=== PATIENT | female | born 1995 | race Caucasian/White ===

== ENCOUNTER 2025-07-05 16:44 | Emergency (ER) | payer OTHER ==
[~2025-07-05] VITALS: Ht 177.8 cm; Wt 77.1 kg
[2025-07-05 16:52] VITALS: BP 109/68; TEMP 97.9
[2025-07-05 17:00] VITALS: O2SAT 99
== END 2025-07-05 17:01 | disposition home or self-care (01) ==
LOC: ER 16:56
DX: R06.02 Shortness of breath (principal); F64.0 Transsexualism